=== PATIENT | male | born 2000 | race Caucasian/White ===

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

== ENCOUNTER 2022-08-18 02:19 | Day surgery (SDC) | payer OTHER, SELFPAY ==
[2022-08-17 14:04] VITALS: BMI 19.5
--- NOTE | 2022-08-17 14:09 | PC.NURSE ---
Report to the Outpatient Waiting Room, entrance under the green pavilion located off [facility], at time 1100 on date 08/18/22. Planned Procedure Time: 1300. Time changes happen often and if your time is changed the preop area will call you the afternoon before. - You and your visitor will be asked to self-screen and do not enter if you have any COVID symptoms. - A mask is optional within the hospital at this time. Patients may have clear liquids (water, carbonated beverages, clear teas, apple juice) until 3 hours prior to surgery with a maximum of 20 ounces. - No food from midnight until time of surgery - Infants may have breast milk until 4 hours before surgery, infant formula 6 hours prior to surgery. - Children will be allowed to drink immediately following surgery. If applicable, please bring a bottle or sippy cup to assist with drinking. Juice, water, soda, and popsicles are readily available. For infants on formula, please bring formula the day of surgery. Pacifiers are allowed. Take the following medications with a SIP of water the morning of surgery: INHALER IF NEEDED DO NOT STOP ANY OF YOUR OTHER PRESCRIPTION MEDICATIONS PRIOR TO SURGERY EXCEPT THE FOLLOWING Medications to discontinue per physician: N/A Date to take last dose: N/A Please no make-up, nail grenadian, hairspray, perfume, deodorant, or body powder the day of surgery. No jewelry (including any body piercings) or valuables the day of surgery, leave them at home. Please take a shower or bath the night before, or the morning of, surgery with an antibacterial soap. Wear comfortable, loose fitting clothing. - Jewelry must be removed prior to entering the operating room. Rings and piercings that are not removed may be cut off. - The hospital will not accept responsibility for valuables. - Please leave all valuables, including medications, at home the day of surgery. If you are going home after surgery, a licensed automobile drivers must drive you home. - NO public transportation without another adult if you receive anesthesia. - We recommend that an adult stay with you for 24 hours following discharge. - We also recommend that you do not drive, make important decision, drink alcoholic beverages, or take any drugs that were not prescribed by your health care provider for at least 24 hours after your discharge time. Follow any additional instructions given to you from your surgeon. If you or anyone in your household have experienced Covid symptoms in the past week, please notify your surgeon or the nurse liaison at the phone number below for possible testing. Telephone instructions given to TARAH LOMELI and asked if any additional questions and then verbalized understanding. Patient advised to call surgeon office or pre surgery nurse liaison [phone] if any additional questions.
[2022-08-18] VITALS (11 sets, daily range): BP systolic 98–123; BP diastolic 53–80; PULSE 64–95; RESP 12–16; TEMP 36.5–36.6; O2SAT 97–100
--- NOTE | 2022-08-18 12:15 | PM.IMHP ---
H&P: HPI History of Present Illness Date/Time: 08/18/22 12:15 Chief Complaint: penile curvature PMFSH Past Medical History Medical History (Updated 08/18/22 @ 14:48 by Reny Alegria MD) ADD (attention deficit disorder) Anxiety Congenital curvature of penis Exercise-induced asthma Social History Social History Smoking status: Never smoker Second hand tobacco smoke exposure: No Alcohol intake: never Substance use: never Substance use type: does not use Living arrangements: alone Occupation/Education: occupation Gender identity (if verbalized by the patient): Male Spiritual care concerns: No Meds Home Medications and Allergies Home Medications Medication Instructions Recorded Confirmed Type albuterol sulfate 90 mcg/actuation 1 puff inhalation Q4-6H PRN 07/13/22 08/17/22 Rx aerosol inhaler shortness of breath or wheezing #8.5 grams dextroamphetamine-amphetamine ER 10 mg PO DAILY 08/17/22 08/17/22 History 10 mg 24hr capsule,extend release (Adderall XR) finasteride 1 mg tablet 1 mg PO DAILY 08/17/22 08/17/22 History minoxidil 5 % topical solution 1 ml topical BID 08/17/22 08/17/22 History Allergies Allergy/AdvReac Type Severity Reaction Status Date / Time Penicillins Allergy Unknown RASH Verified 08/18/22 11:06 Vital Signs Vital Signs - 24 hr 08/18/22 11:28 Temperature 36.6 C Pulse Rate 84 Respiratory Rate 16 Blood Pressure 104/61 Pulse Oximetry 100 Oxygen Delivery Room Air Exam Narrative: Patient is awake alert. He is in no acute distress. Breathing easily repairs abdomen soft nontender nondistended. Normal phallus without significant plaque Assessment and Plan Assessment and plan (1) Congenital curvature of penis: Code(s): Q55.61 - Curvature of penis (lateral) Status: Acute Plan Plan penile plication procedure. The risks benefits and alternatives with the patient and he agrees to proceed.
--- NOTE | 2022-08-18 12:50 | SUR.PREOP ---
Discussed delay with patient and mothers. Voices understanding.
--- NOTE | 2022-08-18 14:20 | P.PNAN_ITS ---
Anes - Initial Pre Proc Eval Procedure: Operation Date: 08/18/22 13:00 Proposed Procedures p Penile Plication - Reny Alegria MD Date/Time: 08/18/22 14:20 Surgeon: Reny Alegria MD Pre Op Diagnosis: Peyronies Patient Data Age: 22 Gender: M Height: 1.7 m Weight: 56.7 kg Last Vital Signs Temp 36.6 C 08/18/22 11:28 Pulse 84 08/18/22 11:28 Resp 16 08/18/22 11:28 BP 104/61 08/18/22 11:28 Pulse Ox 100 08/18/22 11:28 O2 Del Method Room Air 08/18/22 11:28 Allergies Allergy/AdvReac Type Severity Reaction Status Date / Time Penicillins Allergy Unknown RASH Verified 08/18/22 11:06 Home Medications Medication Instructions Recorded Confirmed Type albuterol sulfate 90 mcg/actuation 1 puff inhalation Q4-6H PRN 07/13/22 08/17/22 Rx aerosol inhaler shortness of breath or wheezing #8.5 grams dextroamphetamine-amphetamine ER 10 mg PO DAILY 08/17/22 08/17/22 History 10 mg 24hr capsule,extend release (Adderall XR) finasteride 1 mg tablet 1 mg PO DAILY 08/17/22 08/17/22 History minoxidil 5 % topical solution 1 ml topical BID 08/17/22 08/17/22 History Patient hx anesthesia problems: none Family hx anesthesia problems: none Results Review: All pre-operative results and documents have been reviewed as part of the pre- operative evaluation. [facility] Past Medical History Medical History (Updated 08/18/22 @ 12:19 by Reny Alegria MD) ADD (attention deficit disorder) Anxiety Condyloma Exercise-induced asthma Skin lesions Social History Social History Smoking status: Never smoker Second hand tobacco smoke exposure: No Alcohol intake: never Substance use: never Substance use type: does not use Living arrangements: alone Occupation/Education: occupation Gender identity (if verbalized by the patient): Male Spiritual care concerns: No Anes - Eval Final PreProcedure Day of Procedure 08/18/22 14:20 Patient weight: normal Heart: regular rate and rhythm Lungs: clear to auscultation Airway: Mallampati scale class II Neurological: alert and oriented Last oral intake: >/= 8 hours ASA classification: II Emergent: no Anesthetic plan: proceed Anesthesia type and monitoring: general LMA and standard monitoring Results Review: All pre-operative results and documents have been reviewed as part of the pre- operative evaluation. Informed Consent: The patient's anesthetic plan and its attendant risks and benefits were discussed with the patient/family/POA. Questions were solicited and answers provided to the satisfaction of the patient/family/POA.
--- NOTE | 2022-08-18 14:48 | WPDHPUPDATE1 ---
History and Physical Update Update Date/Time: 08/18/22 14:48 History and Physical has been reviewed, including an updated exam of the patient. There are NO changes in the patient's condition. Risks, benefits, and alternatives have been discussed and questions answered. Patient agrees to proceed with procedure.
[2022-08-18] MEDS: ceFAZolin 1 GM/NS 50 ML 1 GM/50 ML BAG IVPB (15:08)
[2022-08-18] MEDS: LIDOCAINE HCL 1% LOCAL INJ 20 ML VIAL INFILTRATE (16:15)
[2022-08-18] MEDS: BUPivacaine HCL 0.5% PF 30 ML VIAL INFILTRATE (16:15)
[2022-08-18] MEDS: LACTATED RINGERS 1,000 ML 30 ML IV CONT ×2 (16:33)
--- NOTE | 2022-08-18 16:48 | W.PM.PROC2 ---
Procedure Note - Detailed Date of Procedure 08/18/22 Pre-op Diagnosis Peyronies Post-op Diagnosis Same Procedure Performed Penile plication Surgeon Reny Alegria MD Anesthesia General Description of Procedure Informed consent was obtained. Patient taken the operating. He was given preoperative IV antibiotics. He is distended she has a. He was shaved was prepped and draped in normal sterile fashion. We then placed a 21gauge butterfly needle into the left corporal body and injected dilute lidocaine for artificial erection. This point the patient was noted to have [id number]? of left-sided curvature the point of maximal curvature 10cm proximal to coronal margin. We marked the area of maximal curvature. It appeared that it would be much more cosmetic for the patient to have a ventral midline incision as opposed to a circumcising incision. We therefore placed a Valadez catheter for urethral identification and then opened a 3cm area in the ventral midline of the penis at the level of maximal curvature. We then dissected down to the right corporal body we then sharply opened Ornelas's fascia lateralizing the neurovascular bundle starting at the area immediately lateral to the urethra. The corporal body was then exposed and we placed 2-0 sutures using a modified Lue technique. At this point artificial erection was again performed revealing [id number]? of residual curvature. We then placed additional 4 sutures of 3-0 Ethibond allowing for improvement of curvature with repeated artificial erection. This point the patient had no more than 10? of curvature the erection. We irrigated copiously. We then closed Ornelas's fascia with 3-0 Vicryl suture to close deeper layer with 3-0 Vicryl suture. We then closed skin with a 3-0 Monocryl horizontal mattress. Surgical glue was applied. Once the glue was dry we placed a compressive dressing. patient was awakened taken to recovery stable Estimated Blood Loss 20 Pathology None sent Complications No immediate complications Condition Stable Disposition PACU
[2022-08-18] MEDS: fentaNYL CITRATE INJ (*CRX) 100 MCG/2 ML VIAL 25 MCG IV PUSH ×4 (17:04→17:19)
[2022-08-18] MEDS: oxyCODONE HCL (*CRX) 5 MG TAB IR PO (18:05)
== END 2022-08-18 18:45 | disposition home or self-care (01) ==
PROVIDERS: PCP Family Medicine; Visit Provider Urology
PROC: (CPT 54360; principal; 2022-08-18 13:00)
DX: Q55.61 Curvature of penis (lateral) (principal); F98.8 Other specified behavioral and emotional disorders with onset usually occurring in childhood and adolescence; Z79.51 Long term (current) use of inhaled steroids
CPT/HCPCS: 54360; A9270; J0690; J1100; J2250; J2370; J2405; J2704; J3010; J7030; J7120

== ENCOUNTER 2023-04-13 08:45 | Outpatient (CLI) | payer OTHER, SELFPAY ==
[2023-04-13 09:48] LABS: Basophils Percent Auto 0.5 % (0.2-1.2); Eosinophils Absolute Auto 0.2 K/mm3 (0-0.3); Eosinophils Percent Auto 2.9 % (0-4.4); Hematocrit 48.3 % (42.0-52.0); Hemoglobin 16.1 g/dL (14.0-18.0); Immature Granulocyte Absolute 0.03 K/mm3 (0.00-0.031); Immature Granulocyte Percent A 0.4 % (0-0.5); Lymphocytes Absolute Auto 1.17 K/mm3 (0.9-3.2); Lymphocytes Percent Auto 15.2 % (18.3-44.2); Mean Corpuscular HGB Conc 33.3 g/dl (32-36); Mean Corpuscular Hemoglobin 29.2 pg (26-34); Mean Corpuscular Volume 87.5 fl (80-100); Mean Platelet Volume 9.7 fl (7.4-10.4); Monocytes Absolute Auto 0.8 K/mm3 (0.1-0.6); Monocytes Percent Auto 10.2 % (2.6-8.5); Neutrophils Absolute Auto 5.4 K/mm3 (1.3-6.7); Neutrophils Percent Auto 70.8 % (45.5-73.1); Platelet Count Result 227 k/mm3 (150-375); Red Blood Count 5.52 M/mm3 (4.6-6.20); Red Cell Distribution Width 12.5 % (11.5-14.5); White Blood Count 7.7 K/mm3 (4.5-10.0)
[2023-04-13 09:56] LABS: Appearance Urine Clear (Clear); Bilirubin Urine Negative (Negative); Blood Urine Negative (Negative); Color Urine Yellow (Yellow); Glucose Urine UA Negative (Negative); Ketones Urine Negative (Negative); Leukocyte Esterase Ur Negative LEU/UL (NEGATIVE); Nitrate Urine Negative (Negative); Protein Urine Negative (Negative); Specific Grav Ur 1.017 (1.001-1.035); Urobilinogen Urine 0.2 mg/dL (<2.0)
[2023-04-13 10:00] LABS: Alanine Aminotransferase 29 U/L (6-50); Albumin Level 4.1 g/dL (3.5-5.1); Alkaline Phosphatase 69 U/L (38-126); Anion Gap 7 mmol/L (8-16); Aspartate Amino Transferase 30 U/L (17-59); Bilirubin,Total 0.5 mg/dL (0.2-1.3); Blood Urea Nitrogen 12 mg/dL (9-20); Calcium 8.8 mg/dL (8.4-10.2); Carbon Dioxide 30 mmol/L (22-30); Chloride 102 mmol/L (98-107); Estimated Glomerular Filt Rate > 60; Glucose 91 mg/dL (65-110); Potassium 4.2 mmol/L (3.4-5.0); Sodium 139 mmol/L (137-145)
[2023-04-13 10:24] LABS: Vitamin D 25 Hydroxy 14.2 ng/mL
[2023-04-13 10:25] LABS: Influenza A QL RT-PCR Negative (Negative); Influenza B QL RT-PCR Negative (Negative); SARS-CoV-2 RNA PCR Negative (Negative)
[2023-04-13 10:35] LABS: Add Urine Microscopic? NO
== END 2023-04-13 08:46 | disposition home or self-care (01) ==
LOC: ANHLAB 08:46
PROVIDERS: Physician Assistant; Physician Assistant Medical; PCP Family Medicine; Visit Provider Family Medicine
DX: Z00.00 Encounter for general adult medical examination without abnormal findings (principal); R05.9 Cough, unspecified; R50.9 Fever, unspecified; R53.83 Other fatigue; Z20.822 Contact with and (suspected) exposure to COVID-19
CPT/HCPCS: 36415; 80053; 81003; 82306; 84443; 85025; 87636

== ENCOUNTER 2025-01-24 17:20 | Emergency (ER) | payer OTHER, SELFPAY ==
--- NOTE | ~2025-01-24 | XR_ITS ---
Clinical History: NECK PAIN AFTER REAR END ISIDRO Examination: XR_CERV2-3V_CR Comparison: None Technique: 3 views cervical spine Findings: No acute fracture or listhesis. Straightening of normal cervical lordosis. Prevertebral soft tissues within normal limits. Disc spaces maintained. No significant degenerative changes. Impression: 1. No acute findings. Reviewed, dictated and finalized at location R. Impression: 1. No acute findings.
[2025-01-24 17:34] VITALS: BP 118/71; PULSE 91; RESP 18; TEMP 35.9; O2SAT 99
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
== END 2025-01-24 19:05 | disposition home or self-care (01) ==
PROVIDERS: Emergency Provider Registered Nurse; PCP Family Medicine
DX: S13.9XXA Sprain of joints and ligaments of unspecified parts of neck, initial encounter (principal); V43.52XA Car driver injured in collision with other type car in traffic accident, initial encounter; F17.210 Nicotine dependence, cigarettes, uncomplicated; J45.990 Exercise induced bronchospasm; F98.8 Other specified behavioral and emotional disorders with onset usually occurring in childhood and adolescence; F41.9 Anxiety disorder, unspecified
CPT/HCPCS: 72040; 99213; G0463